=== PATIENT | female | born 1955 | race Caucasian/White ===

== ENCOUNTER 2018-08-17 06:48 | Emergency (ER) | payer BC ==
[~2018-08-17] VITALS: Ht 172.7 cm; Wt 78.6 kg
[2018-08-17 08:11] VITALS: BP 122/72
== END 2018-08-17 08:10 | disposition home or self-care (01) ==
LOC: ER 06:49
DX: S93.491A Sprain of other ligament of right ankle, initial encounter (principal); G89.29 Other chronic pain; W01.0XXA Fall on same level from slipping, tripping and stumbling without subsequent striking against object, initial encounter; Y93.89 Activity, other specified; Y92.89 Other specified places as the place of occurrence of the external cause; Y99.8 Other external cause status
CPT/HCPCS: 73610; 99284